=== PATIENT | male | born 1985 | race Caucasian/White ===

== ENCOUNTER 2018-03-22 17:21 | Emergency (ER) | payer MEDICAID, OTHER ==
[~2018-03-22] VITALS: Ht 188 cm; Wt 84.0 kg
[2018-03-22 17:25] VITALS: BP 140/87
== END 2018-03-22 17:22 | disposition home or self-care (01) ==
LOC: ED 17:21 → EDBD 17:21 → ED 17:22
DX: S01.81XA Laceration without foreign body of other part of head, initial encounter (principal); Z53.21 Procedure and treatment not carried out due to patient leaving prior to being seen by health care provider

== ENCOUNTER 2018-03-22 17:26 | Emergency (ER) | payer MEDICAID, OTHER ==
[2018-03-22] MEDS ORDERED: MIDAZOLAM 1 MG/ML, 2ML ONE (17:42)
[2018-03-22] MEDS ORDERED: PLEASE ENTER HEIGHT AND WEIGHT AND ALLERGIES MC SCH (17:51)
[2018-03-22] MEDS ORDERED: MIDAZOLAM 1 MG/ML, 2ML IVPush ONE (18:00)
[2018-03-22] MEDS: DIPH,PERTUSS(ACELL),TET VAC/PF NC IM-VACC ONE ×2 (18:00→18:40)
[2018-03-22] MEDS ORDERED: MIDAZOLAM 1 MG/ML, 2ML IM ONE (18:00)
[2018-03-22] MEDS ORDERED: DIPH,PERTUSS(ACELL),TET VAC/PF 0.5 ML IM-VACC ONE (18:21)
[2018-03-22] MEDS ORDERED: BACITRACIN ZINC OINT 500U/GM, 0.9 GM ONE (18:21)
== END 2018-03-22 18:50 | disposition home or self-care (01) ==
LOC: EDBD → ED 18:44 → MERGE 18:44 → ED 18:50
DX: S01.81XA Laceration without foreign body of other part of head, initial encounter (principal); F41.1 Generalized anxiety disorder; Z59.0 Homelessness; Y33.XXXA Other specified events, undetermined intent, initial encounter; Y93.89 Activity, other specified; Y92.89 Other specified places as the place of occurrence of the external cause; Y99.8 Other external cause status
CPT/HCPCS: 96374; 99284; J2250; 90715